=== PATIENT | female | born 1955 | race Caucasian/White ===

== ENCOUNTER → 2016-06-11 | Outpatient (CLI) | payer OTHER ==
--- NOTE | 2016-06-11 16:35 | MR ---
MRI of the Cervical Spine (Without Contrast) at 1354 hour History: Cervicalgia (M 54.2) Technique: Sagittal T1, T2, and STIR along with axial T2 weighted MERGE and CUBE MR sequences of the cervical spine without contrast. Comparison to prior CT cervical spine study from February 11, 2016 and MRI study from November 15, 2013. Findings: Cervical vertebral bodies are normal in height and alignment without compression fractur es or spondylolisthesis. Cerebellar tonsils are in normal position. Cervical spinal cord demonstrate s normal signal without cord edema or myelomalacia. C2-C3: Normal. C3-C4: No disk bulge or protrusion. Right-sided facet hypertrophy is noted with mild associated neuro foraminal stenosis C4-C5: No desiccation or loss of disk height. There is anterior bulging with anterior marginal osteop hytes. No significant posterior disk bulge or protrusion. There is mild left-sided facet hypertrophy with mild left-sided neuroforaminal stenosis. C5-C6: Mild desiccation and loss of disk height. Mild diffuse disk bulge causes minimal compression u clyde the dural sac without significant spinal stenosis. There is mild left-sided facet hypertrophy. C6-C7: Mild anterior disk bulge with anterior marginal osteophyte. C7-T1: Normal. Impression: 1. Mild disk bulges without consequences at C4-C5, C5-C6, and C6-C7. Findings are stable. 2. Mild left-sided facet hypertrophy at C4-C5 and at C5-C6 and right-sided facet hypertrophy at C3-C4 .
--- NOTE | 2016-06-11 19:35 | MR ---
MRI of the Lumbar Spine (Without Contrast) at 1420 hour Clinical Indications: Low back pain with sciatica (M 54.42). Technique: Sagittal and axial T1 and T2 MR sequences of the lumbar spine without contrast. Axial i maging from T12 through S1. Findings: Lumbar vertebral bodies are of normal height without compression fractures. Conus medulla ris appears normal and ends at L2. Peripelvic renal cysts are evident. T12-L1: No disk herniation or stenosis. L1-L2: No disk herniation or stenosis. L2-L3: No disk herniation or stenosis. L3-L4: No disk herniation or stenosis. L4-L5: No disk herniation or stenosis. Moderate bilateral facet hypertrophy is noted. L5-S1: Marked disk space narrowing with Modic type II fatty endplate changes. No significant disk bul ge or protrusion. Mild facet hypertrophy is noted. Impression: 1. Marked chronic disk space narrowing at L5-S1 without bulge or protrusion. 2. Moderate bilateral facet hypertrophy at L4-L5 and mild at L5-S1.
== END ==
LOC: FIMAGING 13:02
PROVIDERS: ATTEND Family Medicine
DX: M54.42 Lumbago with sciatica, left side (principal); M54.2 Cervicalgia

== ENCOUNTER 2016-06-28 06:32 | Day surgery (SDC) | payer OTHER ==
[2016-06-28] MEDS ORDERED: BUPIVACAINE/EPI 0.5% 30 ML SDV ONE (06:44)
[2016-06-28] MEDS ORDERED: ceFAZolin 2 GM/DEXTROSE 100 ML IV ONE (07:00)
[2016-06-28] MEDS ORDERED: ACETAMINOPHEN 500 MG TAB PO ONE (07:00)
[2016-06-28] MEDS ORDERED: MIDAZOLAM 2 MG/2 ML VIAL ONE ×2 (07:06→07:22)
[2016-06-28] MEDS ORDERED: fentaNYL 100 MCG/2 ML INJ ONE ×2 (07:11→09:13)
[2016-06-28] MEDS ORDERED: PROPOFOL 200 MG/20 ML VIAL ONE ×3 (07:11→08:42)
[2016-06-28] MEDS ORDERED: ROPIVACAINE HCL 150 MG/30 ML INJ ONE (07:18)
[2016-06-28] MEDS ORDERED: SCOPOLAMINE HYDROBROMIDE 1.5 MG PATCH TD ONE (07:20)
[2016-06-28] MEDS ORDERED: PHENYLEPHRINE HCL 100 MCG/ML SYR ONE ×3 (07:54→08:26)
[2016-06-28] MEDS ORDERED: ONDANSETRON 4 MG/2 ML VIAL ONE (07:59)
[2016-06-28] MEDS ORDERED: GLYCOPYRROLATE 0.2 MG/1 ML VIAL ONE (07:59)
[2016-06-28] MEDS ORDERED: DEXAMETHASONE 4 MG/ML VIAL ONE (07:59)
[2016-06-28] MEDS ORDERED: METOCLOPRAMIDE 10 MG/2 ML VIAL ONE (07:59)
[2016-06-28] MEDS ORDERED: CALCIUM CHLORIDE 1 GM/10 ML INJ ONE (08:05)
[2016-06-28] MEDS ORDERED: THROMBIN (RECOMBINANT) 5,000 UNIT VIAL TP ONE (08:05)
--- NOTE | 2016-06-28 11:59 | GOP ---
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 ANESTHESIA: By scalene block plus LMA. PREOPERATIVE DIAGNOSIS: Left shoulder impingement syndrome with labral tear. POSTOPERATIVE DIAGNOSIS: Left shoulder impingement syndrome with labral tear with partial thickness rotator cuff tear. PROCEDURE PERFORMED: Left shoulder arthroscopy with debridement of rotator cuff, labrum and subacrom ial bursa with subacromial decompression and distal clavicle excision. FINDINGS: INDICATIONS: This is a 60-year-old female with a several month history of left shoulder pain worseni ng with use and with time despite conservative measures. MRI reveals a very thin supraspinatus along with a labral tear and a significant anterior acromial hook. She wished to have surgery in order to r esolve the problem. DESCRIPTION OF PROCEDURE: The patient was brought to the operating room after the left side had been identified as the correct side by the patient, nurse and physician. Once in the operating room, she was given a scalene block on the left side, then placed under general anesthesia using LMA. Once asle ep, she was placed in a beach chair position with the left upper extremity sterilely prepped and drap ed in the usual fashion using GSI solution. Once prepped and draped, an incision was made off the posterolateral corner of the acromion, with the camera introduced without difficulty. Inspection of the joint revealed a large tear of the superior and anterior portion of the labrum along with no significant osteoarthritic changes and some minor fr aying noted to the rotator cuff. Therefore, using an in-to-out technique, an anterior portal was made in the superolateral coracoid process with a 6 x 75 mm threaded cannula placed through the anterior portal and a 3.5 mm smooth shaver brought through the anterior portal and used to remove the tearing of the anterior and superior portions of the labrum. Once completed, all instruments were removed fro m the glenohumeral joint. Using the same portal sites, was reintroduced in the subacromial space. A 3 rd incision was made 2 cm lateral to the acromial process in line with the posterior cortex of the cl avicle with the camera switched to the lateral portal, and alternating use of arthroscopic Bovie tip and shaver, used to remove the abundant amount of tissue from the undersurface of the acromion and th e bursal space. Once completed, she was noted to have a large anterior acromial curve. An acromioniz er bur was brought through the posterior portal and used to remove that curve until achieving a flat ceiling. Once completed, attention was turned to the distal clavicle which was noted to have a short sharp inferior spur, and this was also removed using a combination of shaver and bur. Once completed, inspection was done of the rotator cuff. She was noted to have a partial-thickness tear with some mi nor delamination, but it did not appear to be requiring repair. Therefore, all instruments were removed from the subacromial space with 30 cc of Marcaine infused in the subacromial space. The 3 portal sites were closed using a 3-0 nylon suture in a [id number] t ype stitch. The wounds were dressed with Xeroform, 4 x 4, and Tegaderm. She was completely undraped i n the operating room. Had a sling placed on the left upper extremity. She was then woken up, extubate d, transferred onto a stretcher, and sent to the recovery room in good condition. /[id number]/MODL
== END 2016-06-28 12:47 | disposition home or self-care (01) ==
LOC: FSGY 06:32
PROVIDERS: ATTEND Orthopaedic Surgery
PROC: 0PBB4ZZ Excision of Left Clavicle, Percutaneous Endoscopic Approach (ICD-10-PCS; principal; 2016-06-28 07:15)
PROC: 0MB24ZZ Excision of Left Shoulder Bursa and Ligament, Percutaneous Endoscopic Approach (ICD-10-PCS; principal; 2016-06-28 07:15)
DX: M25.812 Other specified joint disorders, left shoulder (principal); M75.112 Incomplete rotator cuff tear or rupture of left shoulder, not specified as traumatic
CPT/HCPCS: J0171; J0690; J1100; J2250; J2370; J2405; J2704; J2765; J2795; J3010

== ENCOUNTER → 2016-11-18 | Outpatient (CLI) | payer OTHER | LOC: BMCIMAGING 08:42 | PROVIDERS: ATTEND Family Medicine | DX: Z12.31 Encounter for screening mammogram for malignant neoplasm of breast (principal) | CPT/HCPCS: G0202 ==

== ENCOUNTER → 2017-11-22 | Outpatient (CLI) | payer OTHER | LOC: FIMAGING 07:31 | PROVIDERS: ATTEND Family Medicine | DX: Z12.31 Encounter for screening mammogram for malignant neoplasm of breast (principal); Z80.3 Family history of malignant neoplasm of breast ==

== ENCOUNTER 2018-06-07 14:01 | Emergency (ER) | payer OTHER ==
[2018-06-07 14:12] VITALS: BP 157/93
--- NOTE | 2018-06-07 15:14 | EDPHY ---
H & P Time Seen by Provider: 06/07/18 14:58 HPI/ROS: CHIEF COMPLAINT: Left knee pain HISTORY OF PRESENT ILLNESS: The patient is a 62-year-old female who presents emergency department after injuring her left knee earlier the today. Patient states she was walking when she slipped. She twisted her knee but did not fall. She had no direct trauma to her knee. She states she has previously injured her knee about 5-6 years ago. She does not recall the exact injury but states that started with a "p" and completely resolved itself. She has been well until today when she slipped. Her pain is moderate. It is worse with movement. She is able to ambulate but feels as though her knee "might give out. " REVIEW OF SYSTEMS: 10 systems were reveiwed and are negative with the exception of the elements mentioned in the history of present illness. Past Medical/Surgical History: Migraines, carpal tunnel syndrome, neck injury Past surgical history: Cholecystectomy, left shoulder surgery, carpal tunnel release Social history: Patient works at [employer]. She does not smoke. Smoking Status: Never smoked Physical Exam: Vitals noted General Appearance: Alert and no distress. Head: Pupils equal. Normal. Respiratory: No respiratory distress. Cardiac: regular rate and rhythm. Extremities: Patient's left knee appears symmetric with the right. There is mild posterior knee tenderness palpation. No palpable mass. No ligamentous instability. Neurovascular intact distally. No patellar tenderness palpation. Skin: No rashes or lesions. Neuro: Alert. Normal mood and affect. Constitutional: Initial Vital Signs Temperature (C) 36.4 C 06/07/18 14:09 Heart Rate 77 06/07/18 14:09 Respiratory Rate 16 06/07/18 14:09 Blood Pressure 157/93 H 06/07/18 14:09 O2 Sat (%) 97 06/07/18 14:09 O2 Delivery Mode Room Air Allergies/Adverse Reactions: No Known Allergies Allergy (Verified 05/04/15 17:29) Home Medications: Medication Instructions Recorded Flexeril 06/17/16 Multivitamin 06/17/16 Naproxen 06/17/16 Acetaminophen 06/28/16 Medical Decision Making ED Course/Re-evaluation: In the emergency department discussed possible etiologies with the patient. I answered all her questions. X-ray of her left knee was ordered. Left knee x-ray: Please refer the dictated report. There is small joint effusion. No fracture. I discussed this with Dr. Cavazos. Discussed results with the patient. I answered all her questions. She was given warnings prior to leaving. Because she feels her knee might go out she is given a knee immobilizer and crutches. She was given follow-up orthopedic surgery. She will return with worsening symptoms. Patient is aware she needs workman's Comp follow-up. Differential Diagnosis: My differential includes but is not limited to knee sprain, knee fracture, knee dislocation, ligamentous instability, meniscal tear Departure - Departure Disposition: Home, Routine, Self-Care Clinical Impression: Knee pain, acute Qualifiers: Laterality: left Qualified Code(s): M25.562 - Pain in left knee Condition: Good Instructions: Knee Sprain (ED) Additional Instructions: Your x-ray was negative. You have been placed in a mobilizer for comfort. Follow up with Orthopedic surgery. You have previously seen Dr. Adler. You been given his contact information. The on-call orthopedic surgeon for the day is Dr. Wilcox. You can also call him for follow-up. Referrals: Darrian Wilcox MD [Medical Doctor] - 5-7 days, call for appt. Lisette Adler MD [Medical Doctor] - 5-7 days, call for appt. Work Comp Referral [facility] [place]] - 1-2 days without fail
== END 2018-06-07 16:18 | disposition home or self-care (01) ==
DX: M25.562 Pain in left knee (principal); M25.462 Effusion, left knee; X50.9XXA Other and unspecified overexertion or strenuous movements or postures, initial encounter; Y92.9 Unspecified place or not applicable; Y93.9 Activity, unspecified; Y99.9 Unspecified external cause status

== ENCOUNTER → 2018-06-16 | Outpatient (CLI) | payer OTHER | LOC: FIMAGING 15:10 | PROVIDERS: ATTEND Physical Medicine & Rehabilitation | DX: S83.282A Other tear of lateral meniscus, current injury, left knee, initial encounter (principal); M22.42 Chondromalacia patellae, left knee ==

== ENCOUNTER → 2018-08-06 | Day surgery (SDC) | payer OTHER | LOC: FCP 14:10 → FSGY 14:15 ==

== ENCOUNTER 2018-08-09 07:38 | Day surgery (SDC) | payer OTHER ==
[2018-08-09] MEDS ORDERED: LIDOCAINE 1% 2 ML INJ ID PRN (07:49)
[2018-08-09] MEDS ORDERED: LR 1,000 ML IV ONE (07:49)
[2018-08-09] MEDS ORDERED: BUPIVACAINE 0.25% 30 ML SDV ONE (09:32)
[2018-08-09] MEDS ORDERED: EPINEPHrine 1 MG/ML INJ ONE (09:32)
[2018-08-09] MEDS ORDERED: SCOPOLAMINE HYDROBROMIDE 1 MG/3 DAYS PATCH TD ONE (09:53)
[2018-08-09] MEDS ORDERED: MIDAZOLAM 2 MG/2 ML VIAL ONE (09:53)
[2018-08-09] MEDS ORDERED: fentaNYL 100 MCG/2 ML INJ ONE ×3 (10:00→12:37)
[2018-08-09] MEDS ORDERED: PROPOFOL/EMULSION 500 MG/50 ML BOTTLE IV ONE (10:00)
--- NOTE | 2018-08-09 10:02 | PDHPUP ---
History & Physical Update H&P update statement: This history and physical update is based on an assessment of the patient which was completed after admission or registration (within 24 hours), but prior to the surgery/procedure. H&P update: H&P reviewed & patient examined, changes noted
[2018-08-09] MEDS ORDERED: ceFAZolin 2 GM/DEXTROSE 100 ML IV ONE (10:03)
[2018-08-09] MEDS ORDERED: ONDANSETRON 4 MG/2 ML VIAL IVP PRN ×2 (10:21→11:32)
[2018-08-09] MEDS ORDERED: HYDROCODONE/APAP 5/325 TAB PO PRN ×2 (10:21→11:32)
[2018-08-09] MEDS ORDERED: LR 500 ML IV PRN ×2 (10:21→11:32)
[2018-08-09] MEDS ORDERED: DEXAMETHASONE 4 MG/ML VIAL IVP PRN ×2 (10:21→11:32)
[2018-08-09] MEDS ORDERED: fentaNYL 100 MCG/2 ML INJ IVP PRN (10:21)
[2018-08-09] MEDS ORDERED: PROMETHAZINE HCL 25 MG/ML INJ IVP PRN ×2 (10:21→11:32)
[2018-08-09] MEDS ORDERED: ALBUTEROL 3 ML DEYVIAL IH PRN ×2 (10:21→11:32)
[2018-08-09] MEDS ORDERED: NALOXONE HCL 0.4 MG/ML INJ IVP PRN ×2 (10:21→11:32)
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
[2018-08-09] MEDS ORDERED: ONDANSETRON 4 MG/2 ML VIAL ONE (10:36)
[2018-08-09] MEDS ORDERED: METOCLOPRAMIDE 10 MG/2 ML VIAL ONE (10:36)
[2018-08-09] MEDS ORDERED: KETOROLAC 30 MG/1 ML SDV ONE (10:36)
[2018-08-09] MEDS ORDERED: LIDOCAINE 2% 5 ML SDV ONE (10:36)
[2018-08-09] MEDS ORDERED: RANITIDINE 50 MG/2 ML VIAL ONE (10:36)
[2018-08-09] MEDS ORDERED: DEXAMETHASONE 4 MG/ML VIAL ONE (10:36)
[2018-08-09] MEDS ORDERED: LABETALOL HCL 5 MG/ML 20 ML MDV ONE (10:44)
--- NOTE | 2018-08-09 11:33 | POSTANESTH ---
Post Anesthetic Evaluation Cardiovascular Status: Normal, Stable, Similar to Pre-Op Cond Respiratory Status: Normal, Stable, Similar to Pre-op Cond. Level of Consciousness/Mental Status: Mildly Sleepy, Arousable Pain Control: Adequate, Prn Tx Ordered Nausea/Vomiting Control: Adequate, Prn Tx Ordered Complications Possibly Related to Anesthesia: None Noted
[2018-08-09] MEDS: fentaNYL 100 MCG/2 ML INJ IVP PRN ×2 (11:39→11:48)
[2018-08-09 13:21] VITALS: BP 102/61
--- NOTE | 2018-08-09 13:37 | GOP ---
[f rep st] OPERATIVE REPORT DATE OF OPERATION: 08/09/2018 SURGEON: Matt Medley MD ANESTHESIA: General. PREOPERATIVE DIAGNOSIS: Lateral meniscus tear, left knee. POSTOPERATIVE DIAGNOSIS: Lateral meniscus tear, left knee. PROCEDURE PERFORMED: Left knee arthroscopy with partial lateral meniscectomy. FINDINGS: INDICATIONS: This is a 62-year-old female who injured her knee, resulting in the above diagnosis. S he has failed nonoperative treatment and is being admitted for surgical care. We have gone over risk s, benefits, and limitations of the procedure preoperatively with the patient. DESCRIPTION OF PROCEDURE: After an adequate general anesthetic was obtained and IV antibiotics admin istered, an exam under anesthesia of the left knee revealed a full range of motion. Aurora stable. There is no varus valgus posterior or posterolateral laxity. Pivot shift stable. The patient's left lower extremity was now placed in the leg-holding device with adequate padding and was prepped and draped in the usual sterile fashion. The limb was exsanguinated with the Esmarch an d tourniquet elevated to 300 mmHg pressure. The standard superolateral, anteromedial, and anterolate ral arthroscopic portals were established with an 11 blade. A 4 mm 30-degree arthroscope was introdu donta through the anterolateral portal, and a systematic examination of the knee was carried out. Supr apatellar pouch, medial, and lateral gutters were normal. The patellar articular surface revealed so me central shaggy grade 2 to 3 chondromalacia which required a minimal chondroplasty. The femoral tr ochlea revealed grade 1 softening. The ACL and PCL were normal. The lateral compartment was entered . There was grade 1 softening of the lateral femoral condyle with some grade 2 to 3 chondromalacia c entrally on the lateral tibial plateau. There was a complex tear involving the lateral meniscus, ant erior third, middle third, and posterior horn. A partial lateral meniscectomy was carried out resect ing this back to a stable 2 to 3 mm rim medially, a 5 to 6 mm rim posteriorly, and a 2 mm rim anterio rly. The final rim was contoured and balanced with a small shaver. The medial compartment was enter ed. The medial articular surfaces revealed grade 1 softening. The medial meniscus was normal. The 70-degree scope was introduced into the posteromedial and posterolateral compartments, confirming the anterior findings with no further posterior pathology noted. The knee was irrigated until clear. The portals were closed using interrupted 3-0 nylon sutures. 30 cc of 0.5% Marcaine with epinephrine was injected. Sterile dressings were applied followed by an Rd wrap. There were no complications. The patient tolerated the procedure well and returned to the recovery r oom in stable condition. /[id number]/MODL
== END 2018-08-09 13:21 | disposition home or self-care (01) ==
LOC: FSGY 07:38
PROVIDERS: ATTEND Orthopaedic Surgery Sports Medicine
PROC: 0MQP4ZZ Repair Left Knee Bursa and Ligament, Percutaneous Endoscopic Approach (ICD-10-PCS; principal; 2018-08-09 10:00)
DX: S83.272A Complex tear of lateral meniscus, current injury, left knee, initial encounter (principal); W01.0XXA Fall on same level from slipping, tripping and stumbling without subsequent striking against object, initial encounter; Y92.89 Other specified places as the place of occurrence of the external cause; Y93.E8 Activity, other personal hygiene; Y99.0 Civilian activity done for income or pay
CPT/HCPCS: J0171; J0690; J1100; J1885; J2250; J2405; J2704; J2765; J2780; J3010

== ENCOUNTER → 2018-08-16 | Outpatient (CLI) | payer OTHER | LOC: FIMAGING 10:08 | PROVIDERS: ATTEND Orthopaedic Surgery Sports Medicine | DX: M79.662 Pain in left lower leg (principal); M79.89 Other specified soft tissue disorders ==

== ENCOUNTER 2018-09-27 11:22 | Emergency (ER) | payer OTHER ==
[2018-09-27] MEDS ORDERED: ASPIRIN 81 MG CHEWABLE TAB PO ONE (12:06)
== END 2018-09-27 14:00 | disposition home or self-care (01) ==
DX: R07.9 Chest pain, unspecified (principal); M25.562 Pain in left knee; Z98.890 Other specified postprocedural states; Z82.3 Family history of stroke